=== PATIENT | female | born 1980 | race African-American/Black ===

== ENCOUNTER 2017-10-23 12:47 | Emergency (ER) | payer MEDICAID ==
[~2017-10-23] VITALS: Ht 175.3 cm; Wt 61.7 kg
[2017-10-23 13:08] VITALS: BP 117/78
[2017-10-23] MEDS ORDERED: ACETAMINOPHEN 325 MG TABLET PO ONE (14:30)
[2017-10-23] MEDS ORDERED: ACETAMINOPHEN 325 MG TABLET ONE (14:43)
== END 2017-10-23 14:52 | disposition home or self-care (01) ==
LOC: ER 12:49
DX: R42 Dizziness and giddiness (principal); R51 Headache; M25.532 Pain in left wrist; M25.562 Pain in left knee; V43.52XA Car driver injured in collision with other type car in traffic accident, initial encounter; Y93.89 Activity, other specified; Y92.89 Other specified places as the place of occurrence of the external cause; Y99.8 Other external cause status
CPT/HCPCS: 99282; A4606; Z7610

== ENCOUNTER 2017-10-28 14:23 | Emergency (ER) | payer MEDICAID ==
[~2017-10-28] VITALS: Ht 175.3 cm; Wt 62.1 kg
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
[2017-10-28] MEDS ORDERED: ACETAMINOPHEN ES 500 MG TABLET ONE (15:52)
[2017-10-28] MEDS ORDERED: ACETAMINOPHEN ES 500 MG TABLET PO ONE (16:00)
[2017-10-28 17:50] VITALS: BP 128/87
--- NOTE | 2017-10-28 17:50 | NUR ---
Patient discharged to home in stable condition. Written and verbal after care instructions given. Patient verbalizes understanding of instruction. PT REC'D A COPY OF ALL IMAGING. PT AMBULATED OUT WITH A STEADY GAIT. PT'S FRIEND IS DRIVING PT HOME.
== END 2017-10-28 17:51 | disposition home or self-care (01) ==
LOC: ER 14:25
DX: S06.0X0A Concussion without loss of consciousness, initial encounter (principal); V89.2XXA Person injured in unspecified motor-vehicle accident, traffic, initial encounter; Y93.89 Activity, other specified; Y92.89 Other specified places as the place of occurrence of the external cause; Y99.8 Other external cause status
CPT/HCPCS: 70450; 99284; A4606; Z7610

== ENCOUNTER 2020-07-14 15:24 | Emergency (ER) | payer MEDICAID, OTHER ==
[~2020-07-14] VITALS: Ht 175.3 cm; Wt 61.2 kg
--- NOTE | 2020-07-14 16:30 | NUR ---
LEFT LEG SWELLING X 3 DAYS. PATIENT A/OX4, BREATHING EVEN AND UNLABORED, NO SOB NOTED, NEEDS ATTENDED. KEPT COMFORTABLE.
--- NOTE | 2020-07-14 17:00 | NUR ---
DR. BENNETT AT BEDSIDE FOR EVAL.
[2020-07-14] MEDS ORDERED: IV NS 0.9% 1,000 ML IV ONE (18:00)
[2020-07-14 18:03] LABS: BASOPHILS # (AUTO) 0.1 /CMM (0.0-0.2); BASOPHILS % (AUTO) 2.2 % (0.0-2.0); EOSINOPHILS % (AUTO) 9.1 % (0.0-6.0); HEMATOCRIT 30 % (33-45); HEMOGLOBIN 9.9 g/dL (11.5-14.8); LYMPHOCYTES # (AUTO) 1.3 /CMM (0.8-4.8); LYMPHOCYTES % (AUTO) 30.8 % (20.0-44.0); MEAN CORPUSCULAR HGB CONC 33 g/dl (31.0-36.0); MEAN CORPUSCULAR VOLUME 92 fL (82-100); MONOCYTES # (AUTO) 0.6 /CMM (0.1-1.30); MONOCYTES % (AUTO) 13.3 % (2.0-12.0); NEUTROPHILS # (AUTO) 1.9 /CMM (1.8-8.9); NEUTROPHILS % (AUTO) 44.6 % (43.0-81.0); PLATELET COUNT (AUTO) 246 /CMM (150-450); RED BLOOD CELL COUNT(AUTO) 3.27 MIL/uL (4.0-5.2); WHITE BLOOD COUNT (AUTO) 4.2 K/uL (4.3-11.0)
--- NOTE | 2020-07-14 18:03 | NUR ---
IV LINE ESTABLISHED, BLOOD DRAWN AND SENT TO LAB.
[2020-07-14 18:12] LABS: CALCIUM, SERUM 8.7 mg/dL (8.5-10.1); CARBON DIOXIDE 30 mmol/L (21-32); CHLORIDE 107 mmol/L (98-107); CREATININE 0.9 mg/dL (0.6-1.3); GLUCOSE 91 mg/dL (74-106); POTASSIUM 3.9 mmol/L (3.5-5.1); SODIUM SERUM 143 mmol/L (136-145); UREA NITROGEN, BLOOD 9 mg/dL (7-18)
[2020-07-14 18:25] LABS: BILIRUBIN,URINE Negative (NEGATIVE); COLOR,URINE YELLOW (YELLOW); LEUKOCYTE ESTERASE ,URINE Negative (NEGATIVE); NITRITE, URINE Negative (NEGATIVE); PROTEIN,URINE Negative (NEGATIVE); UGLUCOSE Negative (NEGATIVE); UROBILINOGEN,URINE 0.2 EU/dL (0.2)
[2020-07-14 18:28] LABS: ALCOHOL, BLOOD < 3 mg/dL (0-0)
[2020-07-14 18:28] LABS: ALANINE AMINOTRANSFERASE 17 U/L (12-78); ALBUMIN 3.3 g/dL (3.4-5.0); ALKALINE PHOSPHATASE 41 U/L (46-116); ASPARTATE AMINOTRANSFERASE 17 U/L (15-37); BILIRUBIN,DIRECT 0.1 mg/dL (0.0-0.2); BILIRUBIN,TOTAL 0.2 mg/dL (0.2-1.0); TOTAL PROTEIN, SERUM 6.6 g/dL (6.4-8.2)
[2020-07-14 18:35] LABS: BACTERIA,URINE None seen /HPF (None Seen); WBC,URINE 0-2 /HPF (0-3)
[2020-07-14 18:36] LABS: SQUAMOUS EPITHELIAL CELL,UR Few /HPF (None Seen)
--- NOTE | 2020-07-14 20:18 | NUR ---
IV removed. Catheter intact and site benign. Pressure and 4x4 applied to site. No bleeding noted.
--- NOTE | 2020-07-14 20:18 | NUR ---
Patient discharged to home in stable condition. Written and verbal after care instructions given. Patient verbalizes understanding of instruction.
[2020-07-14 20:23] VITALS: BP 109/74
== END 2020-07-14 20:23 | disposition home or self-care (01) ==
LOC: ER 15:27
DX: R20.2 Paresthesia of skin (principal); R60.0 Localized edema; D64.9 Anemia, unspecified; Z60.2 Problems related to living alone
CPT/HCPCS: 36415; 71045; 80048; 80076; 80307; 80320; 81001; 84484; 84702; 85025; 85378; 93005; 93970; 96360; 99285; J7030; G0480

== ENCOUNTER 2021-12-02 13:59 | Emergency (ER) | payer OTHER ==
[~2021-12-02] VITALS: Ht 175.3 cm; Wt 65.8 kg
--- NOTE | 2021-12-02 14:30 | NUR ---
TO ER 19 AWAITING NIKOLAS ALVARES
[2021-12-02 17:05] VITALS: BP 106/64
--- NOTE | 2021-12-02 17:25 | NUR ---
Patient discharged to home in stable condition. Written and verbal after care instructions given. Patient verbalizes understanding of instruction.Advised to self quaratine and take tylenol/motrin for pain/fever, and seek medical help for worsening of sx
== END 2021-12-02 17:29 | disposition home or self-care (01) ==
LOC: ER 14:04
DX: U07.1 COVID-19 (principal); J02.9 Acute pharyngitis, unspecified
CPT/HCPCS: 71045; 87070; 87426; 87804; 87880; 99284; C9803; 86403-TC